=== PATIENT | female | born 1985 | race Caucasian/White ===

== ENCOUNTER 2018-07-19 19:04 | Emergency (ER) | payer OTHER ==
[~2018-07-19] VITALS: Ht 149.8 cm; Wt 122.5 kg
[2018-07-19] MEDS ORDERED: AUGMENTIN 875-875 MG PO (19:28)
== END 2018-07-19 19:29 | disposition home or self-care (01) ==
LOC: ED 19:04
DX: H66.91 Otitis media, unspecified, right ear (principal); J32.9 Chronic sinusitis, unspecified

== ENCOUNTER 2024-03-05 21:48 | Emergency (ER) | payer SELFPAY ==
[~2024-03-05] VITALS: Ht 152.4 cm; Wt 122.5 kg
[~2024-03-05 21:48] MED LIST: AUGMENTIN 875-875 MG PO
[2024-03-05] MEDS ORDERED: Tdap Vaccine 0.5 ML SYR (Adult Vaccine) IM ONE (22:25)
[2024-03-06] MEDS ORDERED: ACETAMINOPHEN 325 MG TAB PO ONE (01:10)
[2024-03-06] MEDS ORDERED: Bacitracin Zinc 14 GM TUBE T ONE (01:10)
== END 2024-03-06 01:09 | disposition home or self-care (01) ==
LOC: ED 21:48
DX: S01.21XA Laceration without foreign body of nose, initial encounter (principal); S02.2XXA Fracture of nasal bones, initial encounter for closed fracture; W17.89XA Other fall from one level to another, initial encounter; Y93.89 Activity, other specified; Y92.009 Unspecified place in unspecified non-institutional (private) residence as the place of occurrence of the external cause; Y99.8 Other external cause status